=== PATIENT | male | born 1960 | race Hispanic/Latino ===

== ENCOUNTER 2016-11-08 15:58 | Emergency (ER) | payer BC ==
[2016-11-08] MEDS ORDERED: HYDROcodone/Acetaminophen 10/325 mg Tablet ONE (16:22)
[2016-11-08] MEDS ORDERED: diphenhydrAMINE HCl 25 MG CAP ONE (16:22)
[2016-11-08] MEDS ORDERED: Naproxen 500 MG TAB ONE (16:23)
[2016-11-08] MEDS ORDERED: Labetalol HCl 100 MG/20 ML VIAL ONE (16:36)
[2016-11-08 16:37] LABS: #Basophils 0.1 thou/uL (0.0-0.2); #Eosinphils 0.2 thou/uL (0.0-0.7); #Lymphocytes 2.4 thou/uL (1.20-3.40); #Monocytes 1.4 thou/uL (0.11-0.59); #Neutrophils 10.5 thou/uL (1.40-6.50); %Basophils 0.9 % (0.0-1.0); %Eosinophils 1.3 % (0.0-10.0); %Lymphocytes 16.5 % (21.0-51.0); %Monocytes 9.3 % (0.0-10.0); Hemoglobin 16.7 g/dL (14.0-18.0); Mean Corpuscular Hemoglobin 29.3 pg (27.0-31.0); Mean Corpuscular Volume 88.7 fl (80.0-94.0); Mean Platelet Volume 8.2 fL (7.4-10.4); Platelet Count 238 thou/uL (130-400); RBC Distribution Width 12.8 % (11.5-14.5); White Blood Cell (WBC) Count 14.6 thou/uL (4.8-10.8)
--- NOTE | 2016-11-08 16:52 | RAD ---
LEFT ANKLE THREE VIEWS LEFT FOOT THREE VIEWS 11/08/16 FINDINGS/IMPRESSION: The ankle mortise is maintained. Plantar and calcaneal spurs are present. There is a bony density in ferior to the medial malleolus which may represent an age indeterminate fracture. Clinical correlati on is recommended. No fracture or dislocation is seen in the left foot. POS: [facility]
[2016-11-08 16:54] LABS: ALT (SGPT) 32 U/L (0-55); AST (SGOT) 29 U/L (5-34); Albumin 4.5 g/dL (3.5-5.0); Alkaline Phosphatase 66 U/L (40-150); Anion Gap 20 mmol/L (10-20); BUN (Urea Nitrogen) 10 mg/dL (8.4-25.7); Bilirubin, Total 0.7 mg/dL (0.2-1.2); CRP (Inflammatory) 3.76 mg/dL (= or < 0.5); Calc. Creatinine Clearance 0 mL/min (70-130); Calcium 9.7 mg/dL (7.8-10.44); Carbon Dioxide 20 mmol/L (22-29); Chloride 102 mmol/L (98-107); Estimated GFR-MDRD Greater than 90; Globulin 3.8 g/dL (2.4-3.5); Glucose 115 mg/dL (70-105); Protein, Total 8.3 g/dL (6.0-8.3); Sodium 138 mmol/L (136-145); Uric Acid 9.6 mg/dL (3.5-7.2)
--- NOTE | 2016-11-08 17:01 | RAD ---
LEFT ANKLE THREE VIEWS LEFT FOOT THREE VIEWS 11/08/16 FINDINGS/IMPRESSION: The ankle mortise is maintained. Plantar and calcaneal spurs are present. There is a bony density in ferior to the medial malleolus which may represent an age indeterminate fracture. Clinical correlati on is recommended. No fracture or dislocation is seen in the left foot. POS: [facility]
[2016-11-08] MEDS ORDERED: predniSONE 20 MG TAB ONE (17:11)
[2016-11-08] MEDS ORDERED: Indomethacin 25 mg Capsule ONE (17:11)
[2016-11-08] MEDS ORDERED: Azithromycin 250 MG TAB ONE (17:24)
== END 2016-11-08 18:06 | disposition home or self-care (01) ==
LOC: MADERS 15:58
DX: M10.9 Gout, unspecified (principal); I10 Essential (primary) hypertension; F17.210 Nicotine dependence, cigarettes, uncomplicated; F17.220 Nicotine dependence, chewing tobacco, uncomplicated; Z79.899 Other long term (current) drug therapy
CPT/HCPCS: 36415; 80053; 84550; 85025; 86140; 96374; 96376; J7506

== ENCOUNTER 2017-02-16 10:44 | Emergency (ER) | payer BC ==
[2017-02-16] MEDS ORDERED: Acetaminophen 500 MG TAB ONE (11:32)
[2017-02-16] MEDS ORDERED: Dexamethasone 4 MG TAB ONE (11:32)
[2017-02-16] MEDS ORDERED: Ibuprofen 600 MG TAB ONE (11:32)
== END 2017-02-16 11:55 | disposition home or self-care (01) ==
LOC: MADERS 10:44
DX: M17.11 Unilateral primary osteoarthritis, right knee (principal); I10 Essential (primary) hypertension; M10.9 Gout, unspecified; F17.210 Nicotine dependence, cigarettes, uncomplicated; F17.220 Nicotine dependence, chewing tobacco, uncomplicated
CPT/HCPCS: 99283; J8540

== ENCOUNTER 2017-02-20 09:08 | Emergency (ER) | payer BC ==
[2017-02-20] MEDS ORDERED: Colchicine 0.6 MG TAB ONE (09:46)
[2017-02-20] MEDS ORDERED: Ketorolac Tromethamine 60 MG/2 ML VIAL ONE (09:46)
[2017-02-20] MEDS ORDERED: Colchicine 0.6 MG TAB PO SCH (10:00)
[2017-02-20] MEDS ORDERED: Ketorolac Tromethamine 60 MG/2 ML VIAL IM SCH (10:00)
--- NOTE | 2017-02-20 11:53 | RAD ---
RIGHT KNEE 4 VIEWS: Date: 02/20/17 HISTORY: Right knee pain. FINDINGS: No fracture, dislocation, or bony destruction is seen. There are osteophytes arising from the superi or inferior aspects of the anterior patella. A joint effusion is present. POS: [facility]
== END 2017-02-20 10:50 | disposition home or self-care (01) ==
LOC: MADERS 09:08
DX: M10.9 Gout, unspecified (principal); M17.11 Unilateral primary osteoarthritis, right knee; I10 Essential (primary) hypertension; F17.210 Nicotine dependence, cigarettes, uncomplicated; F17.220 Nicotine dependence, chewing tobacco, uncomplicated; Z79.899 Other long term (current) drug therapy
CPT/HCPCS: 96372; J1885

== ENCOUNTER 2017-09-05 10:52 | Emergency (ER) | payer BC ==
[2017-09-05 11:42] LABS: #Neutrophils 4.2 thou/uL (1.40-6.50); %Eosinophils 3.7 % (0.0-10.0); %Lymphocytes 29.2 % (21.0-51.0); %Monocytes 9.4 % (0.0-10.0); %Neutrophils 56.7 % (42.0-75.0); Manual Diff?? NO; Mean Corpuscular HGB CONC 31.6 g/dL (32.0-36.0); Mean Corpuscular Hemoglobin 28.5 pg (27.0-31.0); Mean Corpuscular Volume 90.2 fL (80.0-94.0); Mean Platelet Volume 7.8 fL (7.4-10.4); Platelet Count 191 thou/uL (130-400); RBC Distribution Width 13.9 % (11.5-14.5); Red Blood Cell (RBC) Count 5.27 mill/uL (4.70-6.10); White Blood Cell (WBC) Count 7.5 thou/uL (4.8-10.8)
[2017-09-05 11:43] LABS: #Basophils 0.1 thou/uL (0.0-0.2); #Eosinphils 0.3 thou/uL (0.0-0.7); #Monocytes 0.7 thou/uL (0.11-0.59); MDiff Complete? YES
[2017-09-05 11:46] LABS: ALT (SGPT) 29 U/L (8-55); AST (SGOT) 23 U/L (5-34); Albumin 3.9 g/dL (3.5-5.0); Alkaline Phosphatase 66 U/L (40-150); Anion Gap 15 mmol/L (10-20); BUN (Urea Nitrogen) 11 mg/dL (8.4-25.7); Bilirubin, Total 0.4 mg/dL (0.2-1.2); Calc. Creatinine Clearance 0 mL/min (70-130); Calcium 8.8 mg/dL (7.8-10.44); Carbon Dioxide 25 mmol/L (22-29); Chloride 104 mmol/L (98-107); Estimated GFR-MDRD Greater than 90; Globulin 3.5 g/dL (2.4-3.5); Glucose 108 mg/dL (70-105); Potassium 4.4 mmol/L (3.5-5.1); Protein, Total 7.4 g/dL (6.0-8.3); Sodium 140 mmol/L (136-145)
[2017-09-05 11:48] LABS: CKMB 1.3 ng/mL (0-6.6); Troponin I 0.013 ng/mL (< 0.028)
[2017-09-05] MEDS ORDERED: CEFAZOLIN 1 GM VIAL ONE (11:54)
[2017-09-05] MEDS ORDERED: cloNIDine 0.1 MG TAB ONE (11:54)
[2017-09-05] MEDS ORDERED: Amlodipine 5 MG TAB ONE (11:54)
[2017-09-05] MEDS ORDERED: Azithromycin 250 MG TAB ONE (18:48)
== END 2017-09-05 12:20 | disposition home or self-care (01) ==
LOC: MADERS 10:52
DX: I10 Essential (primary) hypertension (principal); H10.9 Unspecified conjunctivitis; M10.9 Gout, unspecified; F17.210 Nicotine dependence, cigarettes, uncomplicated; F17.220 Nicotine dependence, chewing tobacco, uncomplicated
CPT/HCPCS: 36415; 80053; 82553; 83880; 84484; 85025; 93005; J0690

== ENCOUNTER 2018-11-16 07:40 | Outpatient (CLI) | payer BC ==
--- NOTE | 2018-11-16 08:19 | CT ---
CT Brain WO Con: 11/16/2018 7:57 AM CLINICAL HISTORY: Facial droop. COMPARISON: None. FINDINGS: Hemorrhage: None. Ventricular system: Normal in size and morphology for the patient's age. Cerebral parenchyma: Microvascular ischemic disease Midline shift: None. Mass: No mass effect. Calvarium: Normal. Visualized Paranasal sinuses: Scattered mild inflammatory mucosal thickening. IMPRESSION: No acute intracranial abnormalities.
[2018-11-16 08:34] LABS: #Basophils 0.1 thou/uL (0.0-0.2); #Eosinphils 0.4 thou/uL (0.0-0.7); #Lymphocytes 2.3 thou/uL (1.20-3.40); #Monocytes 0.9 thou/uL (0.11-0.59); #Neutrophils 5.7 thou/uL (1.40-6.50); %Eosinophils 4.3 % (0.0-10.0); %Lymphocytes 24.1 % (21.0-51.0); %Monocytes 9.7 % (0.0-10.0); %Neutrophils 60.8 % (42.0-75.0); Mean Corpuscular HGB CONC 31.6 g/dL (32.0-36.0); Mean Corpuscular Hemoglobin 27.3 pg (27.0-31.0); Mean Corpuscular Volume 86.4 fL (78.0-98.0); Mean Platelet Volume 7.3 fL (7.4-10.4); Platelet Count 270 thou/uL (130-400); RBC Distribution Width 13.9 % (11.5-14.5); White Blood Cell (WBC) Count 9.3 thou/uL (4.8-10.8)
[2018-11-16 10:55] LABS: Albumin 4.2 g/dL (3.5-5.0); Anion Gap 15 mmol/L (10-20); Bilirubin, Total 0.3 mg/dL (0.2-1.2); Calc. Creatinine Clearance 0 mL/min (70-130); Calcium 9.1 mg/dL (7.8-10.44); Carbon Dioxide 24 mmol/L (22-29); Chloride 104 mmol/L (98-107); Cholesterol 125 mg/dl (< 200 Desired); Estimated GFR-MDRD Greater than 90; Globulin 3.4 g/dL (2.4-3.5); Protein, Total 7.6 g/dL (6.0-8.3); Sodium 139 mmol/L (136-145); Triglycerides 217 mg/dL (Less than 150)
[2018-11-16 11:22] LABS: ALT (SGPT) 19 U/L (8-55); AST (SGOT) 16 U/L (5-34); Alkaline Phosphatase 76 U/L (40-150); BUN (Urea Nitrogen) 12 mg/dL (8.4-25.7); Glucose 99 mg/dL (70-105); HDL Cholesterol 48 mg/dL (>60 Neg Risk); Uric Acid 7.4 mg/dL (3.5-7.2)
[2018-11-16 12:01] LABS: LDL Cholesterol, Calculated 34 mg/dL
[2018-11-16 12:04] LABS: Cardiac Risk 2.6 (Less than 4.5)
== END 2018-11-16 07:41 | disposition home or self-care (01) ==
LOC: MADLABBHPM 07:40
PROVIDERS: ATTEND Family Medicine
DX: M1A.00X0 Idiopathic chronic gout, unspecified site, without tophus (tophi) (principal); I10 Essential (primary) hypertension; R29.810 Facial weakness
CPT/HCPCS: 36415; 70450; 80053; 80061; 84550; 85025

== ENCOUNTER 2022-03-15 09:36 | Emergency (ER) | payer BC ==
[2022-03-15] MEDS ORDERED: Amlodipine 5 MG TAB ONE (10:01)
[2022-03-15] MEDS ORDERED: Ibuprofen 800 MG TAB ONE (10:26)
== END 2022-03-15 11:00 | disposition home or self-care (01) ==
LOC: MADERS 09:36
DX: S82.52XA Displaced fracture of medial malleolus of left tibia, initial encounter for closed fracture (principal); I10 Essential (primary) hypertension; M10.9 Gout, unspecified; X50.1XXA Overexertion from prolonged static or awkward postures, initial encounter; F17.220 Nicotine dependence, chewing tobacco, uncomplicated

== ENCOUNTER 2022-05-01 06:40 | Emergency (ER) | payer BC ==
[2022-05-01] MEDS ORDERED: Nitroglycerin 0.4 MG TAB 1 EACH ONE ×2 (06:51→07:08)
[2022-05-01] MEDS ORDERED: Aspirin Chewable 81 MG TAB ONE (06:54)
[2022-05-01 07:26] LABS: #Basophils 0.1 thou/uL (0.0-0.2); #Eosinphils 0.1 thou/uL (0.0-0.7); #Lymphocytes 0.7 thou/uL (1.20-3.40); #Monocytes 0.8 thou/uL (0.11-0.59); #Neutrophils 9.2 thou/uL (1.40-6.50); %Eosinophils 0.9 % (0.0-10.0); %Lymphocytes 6.6 % (21.0-51.0); %Monocytes 7.5 % (0.0-10.0); Hemoglobin 17.5 g/dL (14.0-18.0); Mean Corpuscular HGB CONC 31.7 g/dL (32.0-36.0); Mean Corpuscular Hemoglobin 29.2 pg (27.0-31.0); Mean Corpuscular Volume 92.1 fL (78.0-98.0); Mean Platelet Volume 7.5 fL (7.4-10.4); Platelet Count 222 thou/uL (130-400); RBC Distribution Width 12.9 % (11.5-14.5); Red Blood Cell (RBC) Count 5.97 mill/uL (4.70-6.10); White Blood Cell (WBC) Count 10.9 thou/uL (4.8-10.8)
[2022-05-01 07:31] LABS: Bilirubin Negative (Negative); Blood, Urine Small (Negative); Clarity Clear (Clear); Glucose, Urine (Dipstick) Negative (Negative); Ketone, Urine Negative (Negative); Leukocyte Negative (Negative); Nitrite Negative (Negative); Protein, Urine (Dipstick) > or equal to 300 mg/dL (Neg-Trace); Specific Gravity, Urine 1.025 (1.005-1.030); Urobilinogen 0.2 mg/dL (Less than 2)
[2022-05-01 07:36] LABS: Bacteria/HPF None Seen HPF (None Seen); Other Microscopic Description C&S SET UP; RBC/HPF 0-3 HPF (0-3); Squamous Epithelial 0-3 HPF (0-3); WBC/HPF None Seen HPF (0-3)
[2022-05-01 07:41] LABS: ALT (SGPT) 10 U/L (8-55); AST (SGOT) 17 U/L (5-34); Albumin 4.2 g/dL (3.4-4.8); Alkaline Phosphatase 85 U/L (40-110); Anion Gap 18 mmol/L (10-20); BUN (Urea Nitrogen) 7 mg/dL (8.4-25.7); Bilirubin, Total 0.6 mg/dL (0.2-1.2); Calc. Creatinine Clearance 0 mL/min (70-130); Calcium 9.1 mg/dL (7.8-10.44); Carbon Dioxide 25 mmol/L (23-31); Chloride 103 mmol/L (98-107); Estimated GFR 86; Globulin 3.2 g/dL (2.4-3.5); Glucose 103 mg/dL (80-115); Potassium 3.7 mmol/L (3.5-5.1); Protein, Total 7.4 g/dL (5.8-8.1); Sodium 142 mmol/L (136-145)
[2022-05-01] MEDS ORDERED: Sodium Chloride 0.9% 1,000 ML ONE (07:58)
[2022-05-01 08:00] LABS: CKMB 2.3 ng/mL (0-6.6)
[2022-05-01] MEDS ORDERED: Nitroglycerin 2% Ointment 1 INCH/1 GM Packet ONE (08:14)
[2022-05-01] MEDS ORDERED: Sodium Chloride 0.9% 100 ML BAG ONE (10:00)
[2022-05-01] MEDS ORDERED: Iopamidol 370 76% 125 ML VIAL FS ONE (10:00)
[2022-05-01 10:54] LABS: Troponin I 0.319 ng/mL (< 0.028)
[2022-05-01] MEDS ORDERED: Enoxaparin Sodium 100 MG/ML SYRINGE ONE (11:08)
[2022-05-01] MEDS ORDERED: Morphine 4 MG/ML VIAL ONE (11:14)
[2022-05-01 12:05] LABS: SARS-CoV-2 NAA Rapid Test Not Detected (NotDetected)
== END 2022-05-01 11:37 | disposition short-term general hospital (02) ==
LOC: MADERS 06:40
DX: I21.4 Non-ST elevation (NSTEMI) myocardial infarction (principal); I11.0 Hypertensive heart disease with heart failure; I50.9 Heart failure, unspecified; E03.9 Hypothyroidism, unspecified; E78.00 Pure hypercholesterolemia, unspecified; Z20.822 Contact with and (suspected) exposure to COVID-19; Z79.899 Other long term (current) drug therapy
CPT/HCPCS: 36415; 71045; 71275; 80053; 81003; 81015; 82553; 83880; 84443; 84484; 85025; 85379; 87086; 93005; 96372; 96374; J1650; J2270; J7050; Q9967; U0002

== ENCOUNTER 2022-12-24 14:24 | Emergency (ER) | payer BC, OTHER, SELFPAY ==
[~2022-12-24 14:24] MED LIST: Iopamidol 370 76% 100 ML VIAL ONE
[2022-12-24] MEDS ORDERED: methylPREDNISolone Sod Succ/PF 125 MG/2 ML VIAL ONE (14:36)
[2022-12-24] MEDS ORDERED: Ipratropium/Albuterol 3 ML NEB ONE (14:36)
[2022-12-24] MEDS ORDERED: EPINEPHrine 1 MG/ML VIAL ONE (14:36)
[2022-12-24] MEDS ORDERED: Racepinephrine 2.25% 0.5 ML NEB ONE (14:38)
[2022-12-24 15:05] LABS: #Basophils 0.1 thou/uL (0.0-0.2); #Eosinphils 0.1 thou/uL (0.0-0.7); #Monocytes 1.1 thou/uL (0.11-0.59); #Neutrophils 9.6 thou/uL (1.40-6.50); %Basophils 0.6 % (0.0-1.0); %Eosinophils 0.6 % (0.0-10.0); %Lymphocytes 8.6 % (21.0-51.0); %Monocytes 9.1 % (0.0-10.0); %Neutrophils 81.2 % (42.0-75.0); Hemoglobin 18.1 g/dL (14.0-18.0); Mean Corpuscular HGB CONC 32.1 g/dL (32.0-36.0); Mean Corpuscular Hemoglobin 28.9 pg (27.0-31.0); Mean Corpuscular Volume 90.2 fl (78.0-98.0); Mean Platelet Volume 9.1 fL (7.4-10.4); Platelet Count 222 10x3/uL (130-400); RBC Distribution Width 13.9 % (11.5-14.5); Red Blood Cell (RBC) Count 6.25 mill/uL (4.70-6.10); White Blood Cell (WBC) Count 11.9 10x3/uL (4.8-10.8)
[2022-12-24 15:17] LABS: ALT (SGPT) 23 U/L (8-55); AST (SGOT) 21 U/L (5-34); Albumin 4.5 g/dL (3.4-4.8); Alkaline Phosphatase 95 U/L (40-110); Anion Gap 17 mmol/L (10-20); BUN (Urea Nitrogen) 7 mg/dL (8.4-25.7); Bilirubin, Total 0.7 mg/dL (0.2-1.2); Calc. Creatinine Clearance 0 mL/min (70-130); Calcium 9.7 mg/dL (7.8-10.44); Carbon Dioxide 28 mmol/L (23-31); Chloride 102 mmol/L (98-107); Estimated GFR 87; Globulin 3.8 g/dL (2.4-3.5); Glucose 101 mg/dL (80-115); Potassium 3.6 mmol/L (3.5-5.1); Protein, Total 8.3 g/dL (5.8-8.1); Sodium 143 mmol/L (136-145)
== END 2022-12-24 15:35 | disposition short-term general hospital (02) ==
LOC: MADERS 14:24
DX: R06.1 Stridor (principal); R06.03 Acute respiratory distress; R49.0 Dysphonia; I10 Essential (primary) hypertension; E03.9 Hypothyroidism, unspecified; F17.200 Nicotine dependence, unspecified, uncomplicated; Z79.899 Other long term (current) drug therapy; Z79.82 Long term (current) use of aspirin
CPT/HCPCS: 70491; 80053; 83735; 85025; 96374; J0171; J2930; J7620; Q9967

== ENCOUNTER 2024-05-29 08:40 | Emergency (ER) | payer OTHER, MEDICARE ==
[2024-05-29] MEDS ORDERED: predniSONE 20 MG TAB ONE (09:15)
[2024-05-29] MEDS ORDERED: Ketorolac Tromethamine 30 MG (1 mL) VIAL ONE (09:15)
== END 2024-05-29 09:52 | disposition home or self-care (01) ==
LOC: MADERS 08:40
DX: M10.9 Gout, unspecified (principal); I10 Essential (primary) hypertension; F17.210 Nicotine dependence, cigarettes, uncomplicated; E03.9 Hypothyroidism, unspecified; Z79.899 Other long term (current) drug therapy
CPT/HCPCS: 96372; 99283; J1885; J7512

== ENCOUNTER 2024-07-16 10:22 | Emergency (ER) | payer OTHER ==
[2024-07-16] MEDS ORDERED: methylPREDNISolone Acetate 80 mg (1 mL) VIAL ONE (11:33)
[2024-07-16] MEDS ORDERED: methylPREDNISolone Sod Succ/PF 125 MG/2 ML VIAL ONE (11:35)
== END 2024-07-16 12:00 | disposition home or self-care (01) ==
LOC: MADERS 10:22
DX: M10.9 Gout, unspecified (principal); M79.672 Pain in left foot; I10 Essential (primary) hypertension; F17.210 Nicotine dependence, cigarettes, uncomplicated
CPT/HCPCS: 96372; 99283; J1040; J2919

== ENCOUNTER 2025-07-07 09:36 | Emergency (ER) | payer MEDICARE ==
[2025-07-07] MEDS ORDERED: Acetaminophen 500 MG TAB ONE (10:07)
== END 2025-07-07 10:16 | disposition home or self-care (01) ==
LOC: MADERS 09:36
DX: M19.022 Primary osteoarthritis, left elbow (principal); I10 Essential (primary) hypertension; F17.210 Nicotine dependence, cigarettes, uncomplicated
CPT/HCPCS: 99283